=== PATIENT | male | born 1940 | race Caucasian/White ===

== ENCOUNTER 2019-10-03 12:13 | Emergency (ER) | payer MEDICARE, OTHER, SELFPAY ==
[2019-10-03 12:17] VITALS: BP 153/96; PULSE 90; RESP 20; TEMP 35.9; O2SAT 100
--- NOTE | 2019-10-03 13:04 | ED.GENADULT ---
HPI - General Adult General Chief complaint: Extremity Injury, Upper Stated complaint: lt hand injury/laceration Time Seen by Provider: 10/03/19 12:23 History of Present Illness HPI narrative: Patient is a 79-year-old male who presents the ER with skin tear to left hand. Occurred 2 days ago. Has intermittent bleeding because he is on a blood thinner. No fevers or chills or sweats. No purulent drainage. Concerned he may develop secondary infection. Related Data Home Medications Medication Instructions Recorded Confirmed warfarin 10/03/19 Allergies Allergy/AdvReac Type Severity Reaction Status Date / Time morphine Allergy Severe DIFFICULTY Verified 10/03/19 12:50 BREATHING Review of Systems Review of Systems: All systems reviewed & are unremarkable except as noted in HPI and below Constitutional: Constitutional: Denies chills, Denies fever(s) and Denies weakness Integumentary/Breasts: Comments: Left hand skin tear. PMFSH Past Medical History Medical History (Updated 10/03/19 @ 13:08 by Sebastian Faye MD) Atrial fibrillation Prostate cancer Surgical History Surgical History (Updated 10/03/19 @ 13:06 by Sebastian Faye MD) History of coronary artery bypass graft Exam Narrative: Exam Narrative: GENERAL: Well-appearing, well-nourished, and in no acute distress. HEAD: Normocephalic, atraumatic. EXTREMITIES: Normal range of motion. No edema. SKIN: Warm, dry, skin tear left hand dorsal aspect between the first webspace. Nonbleeding without signs of infection. Granulation tissue noted. PSYCH: Normal mood and affect. Course Course Emergency Course: Not repairable given 48 hours from initial injury. Tetanus is up-to-date. Recommend follow-up with PCP as needed. Recommend daily dressing changes and letting it be exposed to air when he is sitting down. Vital Signs Vital signs: Vital Signs Temperature 96.7 F L 10/03/19 12:17 Pulse Rate 90 10/03/19 12:17 Respiratory Rate 10/03/19 12:17 Blood Pressure 153/96 H 10/03/19 12:17 Pulse Oximetry 100 10/03/19 12:17 Temperature 96.7 F L 10/03/19 12:17 Pulse Rate 90 10/03/19 12:17 Respiratory Rate 10/03/19 12:17 Blood Pressure 153/96 H 10/03/19 12:17 Pulse Oximetry 100 10/03/19 12:17 Medical Decision Making Vital Signs Vital Signs: Vital Signs Temperature 96.7 F L 10/03/19 12:17 Pulse Rate 90 10/03/19 12:17 Respiratory Rate 20 10/03/19 12:17 Blood Pressure 153/96 H 10/03/19 12:17 Pulse Oximetry 100 10/03/19 12:17 Temperature 96.7 F L 10/03/19 12:17 Pulse Rate 90 10/03/19 12:17 Respiratory Rate 10/03/19 12:17 Blood Pressure 153/96 H 10/03/19 12:17 Pulse Oximetry 100 10/03/19 12:17 Discharge Plan Discharge Clinical Impression: Skin tear Patient Disposition: Home, Self-Care Condition: Stable Instructions: Skin Tear (ED) Additional Instructions: Return to the ER if your arm is red and hot, you have pus draining from your wound, you have additional concerns. Prescriptions: No Action warfarin 2 mg tablet RF: 0 Follow-up/Referrals: Lily,Suresh Ortega MD [Primary Care Provider] - 1 Week
== END 2019-10-03 13:40 | disposition home or self-care (01) ==
PROVIDERS: Emergency Provider Emergency Medicine; PCP Internal Medicine
DX: S61.412A Laceration without foreign body of left hand, initial encounter (principal); Z79.01 Long term (current) use of anticoagulants; I48.91 Unspecified atrial fibrillation; Z85.46 Personal history of malignant neoplasm of prostate; I25.10 Atherosclerotic heart disease of native coronary artery without angina pectoris; Z95.1 Presence of aortocoronary bypass graft; W22.8XXA Striking against or struck by other objects, initial encounter
CPT/HCPCS: 99282